=== PATIENT | female | born 1970 | race African-American/Black ===

== ENCOUNTER 2018-10-21 10:36 | Emergency (ER) | payer MEDICAID, OTHER ==
[~2018-10-21] VITALS: Ht 152.4 cm; Wt 68.0 kg
[2018-10-21 10:42] VITALS: BP 111/75
[2018-10-21] MEDS ORDERED: KETOROLAC TROMETH 60MG/2ML VIAL IM ONE (12:30)
[2018-10-21] MEDS ORDERED: METHOCARBAMOL 500 MG TAB PO ONE (12:30)
== END 2018-10-21 13:07 | disposition home or self-care (01) ==
LOC: ER 10:36
DX: S16.1XXA Strain of muscle, fascia and tendon at neck level, initial encounter (principal); G44.209 Tension-type headache, unspecified, not intractable; Z90.49 Acquired absence of other specified parts of digestive tract; X58.XXXA Exposure to other specified factors, initial encounter; Y93.89 Activity, other specified; Y92.89 Other specified places as the place of occurrence of the external cause; Y99.8 Other external cause status
CPT/HCPCS: 70450; 72040; 81002; 81025; 96372; 99284; J1885